=== PATIENT | female | born 1985 | race Caucasian/White ===

== ENCOUNTER 2017-12-11 18:46 | Emergency (ER) | payer BC ==
[~2017-12-11] VITALS: Ht 172.7 cm; Wt 68.0 kg
--- NOTE | 2017-12-11 19:07 | NUR ---
DR PATIENCE SANDY MD AT BEDSIDE FOR MSE.
--- NOTE | 2017-12-11 19:08 | NUR ---
REPORT TAKEN FROM JAY MUNSON. ASSUMING PT CARE AT THIS TIME.
--- NOTE | 2017-12-11 19:15 | NUR ---
RADIOLOGY PAGED FOR ULTRASOUND.
[2017-12-11 19:54] LABS: *BILIRUBIN,URIN NEGATIVE (NEGATIVE); *BLOOD, URINE Trace-intact (NEGATIVE); *CLARITY,URINE CLEAR (CLEAR); *COLOR,URINE YELLOW (YELLOW); *KETONES,URINE NEGATIVE (NEGATIVE); *PROTEIN,URINE NEGATIVE (NEGATIVE); *UROBILINOGEN,URINE 0.2 E.U./dl (NORMAL); LEUKOCYTE ESTERASE ,URINE NEGATIVE (NEGATIVE); NITRITE, URINE NEGATIVE (NEGATIVE); PH,URINE 6.5 (5.0-8.0); UGLUCOSE NEGATIVE (NEGATIVE)
[2017-12-11 19:55] LABS: *URINE HCG, QUAL NEGATIVE (NEGATIVE)
[2017-12-11 20:06] LABS: BACTERIA,URINE NONE SEEN /HPF (NONE SEEN); SQUAMOUS EPITHELIAL CELL,UR FEW /HPF (NONE SEEN); WBC,URINE 0-3 /HPF (0-3)
--- NOTE | 2017-12-11 20:06 | NUR ---
ULTRASOUND AT PT BEDSIDE.
--- NOTE | 2017-12-11 20:28 | NUR ---
Patient discharged to home in stable conditon. Written and verbal after care instructions given. Patient verbalizes understanding of instructions. Pt ambulated from ER w/ steady gait. No distress noted. Pt took all personal belongings.
[2017-12-11 20:30] VITALS: BP 124/62
== END 2017-12-11 20:30 | disposition home or self-care (01) ==
LOC: ER 18:52
DX: Z00.00 Encounter for general adult medical examination without abnormal findings (principal); R10.2 Pelvic and perineal pain; Z90.49 Acquired absence of other specified parts of digestive tract
CPT/HCPCS: 76856; 84703; A4663

== ENCOUNTER 2018-01-24 18:58 | Emergency (ER) | payer BC ==
[~2018-01-24] VITALS: Ht 170.2 cm; Wt 68.0 kg
--- NOTE | 2018-01-24 19:40 | NUR ---
Dr. Amaya at bedside for MSE.
[2018-01-24] MEDS ORDERED: KETOROLAC TROMETHAMINE 15 MG INJ ONE (20:08)
[2018-01-24] MEDS ORDERED: METOCLOPRAMIDE HCL 10 MG/2 ML VIAL ONE (20:08)
[2018-01-24] MEDS: KETOROLAC TROMETHAMINE 15 MG INJ IV ONE (20:09)
[2018-01-24] MEDS: IV NORMAL SALINE 1000 ML BAG IV ONE (20:09)
[2018-01-24] MEDS: METOCLOPRAMIDE HCL 10 MG/2 ML VIAL IV ONE (20:09)
--- NOTE | 2018-01-24 20:10 | NUR ---
Pt provided urine sample, sent to lab.
[2018-01-24 20:16] LABS: BASOPHILS % (AUTO) 0.5 % (0.0-2.0); EOSINOPHILS # (AUTO) 0.2 K/uL (0.0-0.7); EOSINOPHILS % (AUTO) 2.6 % (0.0-7.0); HEMATOCRIT 43.4 % (31.2-41.9); HEMOGLOBIN 14.8 g/dL (10.9-14.3); LYMPHOCYTES % (AUTO) 42.8 % (20.5-51.5); MEAN CORPUSCULAR HEMOGLOBIN 31.8 uug (24.7-32.8); MEAN CORPUSCULAR HGB CONC 34 g/dL (32.3-35.6); MEAN CORPUSCULAR VOLUME 93.3 fL (75.5-95.3); MONOCYTES # (AUTO) 0.6 K/uL (2.0-10.0); MONOCYTES % (AUTO) 8.2 % (0.0-11.0); NEUTROPHILS # (AUTO) 3.2 K/uL (1.8-8.9); NEUTROPHILS % (AUTO) 45.9 % (38.5-71.5); PLATELET COUNT (AUTO) 293 K/uL (179-408); RED BLOOD CELL COUNT(AUTO) 4.66 MIL/uL (3.63-4.92)
[2018-01-24 20:19] LABS: *BILIRUBIN,URIN NEGATIVE (NEGATIVE); *BLOOD, URINE 3+ (NEGATIVE); *CLARITY,URINE SLIGHTLY CLOUDY (CLEAR); *COLOR,URINE YELLOW (YELLOW); *KETONES,URINE NEGATIVE (NEGATIVE); *PROTEIN,URINE NEGATIVE (NEGATIVE); *UROBILINOGEN,URINE 0.2 E.U./dl (NORMAL); LEUKOCYTE ESTERASE ,URINE NEGATIVE (NEGATIVE); NITRITE, URINE NEGATIVE (NEGATIVE); PH,URINE 7.5 (5.0-8.0); UGLUCOSE NEGATIVE (NEGATIVE)
[2018-01-24 20:24] LABS: POTASSIUM 3.6 mmol/L (3.5-5.1)
[2018-01-24 20:25] LABS: BACTERIA,URINE NONE SEEN /HPF (NONE SEEN); RBC,URINE 20-50 /HPF (0-3); SQUAMOUS EPITHELIAL CELL,UR FEW /HPF (NONE SEEN); WBC,URINE 0-3 /HPF (0-3)
--- NOTE | 2018-01-24 20:30 | NUR ---
Ultrasound at bedside.
[2018-01-24 20:38] LABS: BILIRUBIN,DIRECT 0.1 mg/dL (0.0-0.2); BILIRUBIN,TOTAL 0.4 mg/dL (0.2-1.0); TOTAL PROTEIN, SERUM 8.3 g/dL (6.4-8.2)
--- NOTE | 2018-01-24 20:58 | NUR ---
Patient discharged to home in stable conditon. Written and verbal after care instructions given. Patient verbalizes understanding of instructions. Pt ambulated out of ER with steady gait, no acute signs of distress, VSS, all belongings taken, IV site discontinued.
[2018-01-24 20:59] VITALS: BP 97/66
== END 2018-01-24 21:00 | disposition home or self-care (01) ==
LOC: ER 18:58
DX: R10.13 Epigastric pain (principal); F17.200 Nicotine dependence, unspecified, uncomplicated; Z90.49 Acquired absence of other specified parts of digestive tract
CPT/HCPCS: 36415; 70030-TC; 83690; 84703; 85025; 85730; 93005; A4663; J1885; J2765; J7030

== ENCOUNTER 2020-05-10 16:20 | Emergency (ER) | payer BC, OTHER ==
[~2020-05-10] VITALS: Ht 170.2 cm; Wt 68.0 kg
[2020-05-10] MEDS ORDERED: ACETAMINOPHEN 325 MG TABLET PO ONE (16:45)
[2020-05-10] MEDS ORDERED: ACETAMINOPHEN 325 MG TABLET ONE (17:08)
--- NOTE | 2020-05-10 17:27 | NUR ---
PT IS IN ROOM #2B. DR BARBOSA EVALUATED THE PT.
--- NOTE | 2020-05-10 18:22 | NUR ---
PT WAS D/C'd TO HOME. D/C INSTRUCTIONS GIVEN TO THE PT BY DR BARBOSA.
[2020-05-10 18:23] VITALS: BP 134/79
== END 2020-05-10 18:29 | disposition home or self-care (01) ==
LOC: ER 16:23
DX: B34.9 Viral infection, unspecified (principal); R05 Cough; R53.81 Other malaise; J02.9 Acute pharyngitis, unspecified; F17.210 Nicotine dependence, cigarettes, uncomplicated
CPT/HCPCS: 71045; 99284; 99406; U0003; A4663